=== PATIENT | female | born 1940 | race Caucasian/White ===

== ENCOUNTER 2022-10-02 11:26 | Inpatient (IN) | payer OTHER, MEDICAID ==
[~2022-10-02] VITALS: Ht 167.6 cm; Wt 95.3 kg
--- NOTE | 2022-10-02 11:30 | NUR ---
Placed in room 08 . Placed on registered nurse cardiac, blood pressure machine and pulse oximeter. To gown for exam. Side rails up. Report given to Sherie ONTIVEROS
--- NOTE | 2022-10-02 11:35 | NUR ---
Pt presents to ER with SOB, labored respirations,A&Ox4, O2 was in the 70s prior arrival , pt has Hx of COPD , skin pink and warm, cap refill <3,pt arrived on NRB and breathing Tx, O2 improving to 97%, VSS, will cont to monitor
--- NOTE | 2022-10-02 11:40 | NUR ---
Dr Molina evaluating patient at bedside
[2022-10-02 11:43] VITALS: BP_SYST 159
[2022-10-02] MEDS ORDERED: IPRATROPIUM/ALBUTEROL SULFATE 3 ML AMPUL.NEB (DUONEB) INH ONE (11:45)
--- NOTE | 2022-10-02 11:55 | NUR ---
# 20 gauge angiocath placed to RAC. Use of asceptic technique. Opsite placed over site. Blood return noted. Blood for lab drawn from site. Flushed with 10 cc of normal saline. No evidence of infiltration noted. Patient tolerated well.
--- NOTE | 2022-10-02 12:09 | NUR ---
MRSA,COVID,AND FLU SWABBED AND SENT TO LAB
[2022-10-02 12:13] LABS: BASOPHILS % (AUTO) 0.5 % (0.0-2.0); EOSINOPHILS # (AUTO) 0.2 K/uL (0.0-0.4); EOSINOPHILS % (AUTO) 2.4 % (0.0-4.0); HEMATOCRIT 34.8 % (36-48); HEMOGLOBIN 11.5 g/dL (12.0-16.0); LYMPHOCYTES # (AUTO) 1.7 K/uL (1.0-5.5); LYMPHOCYTES % (AUTO) 20.2 % (20.5-51.5); MEAN CORPUSCULAR HEMOGLOBIN 31 pg (27-31); MEAN CORPUSCULAR HGB CONC 33 % (32-36); MEAN CORPUSCULAR VOLUME 92 fL (79.0-98.0); MONOCYTES # (AUTO) 0.6 K/uL (0.0-1.0); MONOCYTES % (AUTO) 6.7 % (1.7-9.3); NEUTROPHILS # (AUTO) 5.9 K/uL (1.8-7.7); NEUTROPHILS % (AUTO) 70.2 % (40.0-70.0); PLATELET COUNT (AUTO) 195 K/uL (130-430); RED BLOOD CELL COUNT(AUTO) 3.77 MIL/uL (4.2-6.2); RED CELL DISTRIBUTION WIDTH 14.3 % (9.0-15.0); WHITE BLOOD COUNT (AUTO) 8.4 K/uL (4.8-10.8)
[2022-10-02 12:33] LABS: ANION GAP 9 (5-15); CALCIUM 9.7 mg/dL (8.4-11.0); CHLORIDE 98 mmol/L (98-107); CREATININE 1.46 mg/dL (0.55-1.30); GLUCOSE 288 mg/dL (70-99); UREA NITROGEN, BLOOD 50 mg/dL (8-21)
[2022-10-02 12:35] LABS: INR 1.1 (0.8-1.2); PROTHROMBIN TIME 11.3 SECS (9.5-12.5)
[2022-10-02 12:39] LABS: ALANINE AMINOTRANSFERASE 11 U/L (12-78); ALBUMIN 3.6 g/dL (3.4-4.8); ASPARTATE AMINOTRANSFERASE 14 U/L (10-37); LIPASE 62 U/L (73-393); TOTAL BILIRUBIN 0.6 mg/dL (0.0-1.0)
--- NOTE | 2022-10-02 12:41 | NUR ---
PT HAD MODERATE WELL FORMED BM ON BEDPAN PER REQUEST
[2022-10-02 12:48] LABS: BILIRUBIN,URINE NEGATIVE (NEGATIVE); BLOOD, URINE 1+ (NEGATIVE); CLARITY/URINE CLOUDY (CLEAR); COLOR,URINE YELLOW (YELLOW); GLUCOSE,URINE NEGATIVE (NEGATIVE); KETONES,URINE NEGATIVE (NEGATIVE); LEUKOCYTE ESTERASE ,URINE 3+ (NEGATIVE); NITRITE, URINE POSITIVE (NEGATIVE); PH,URINE 5.5 (5.0-8.0); PROTEIN URINE TRACE (NEGATIVE); UROBILINOGEN,URINE 0.2 (0.2-1.0)
[2022-10-02 12:49] LABS: BACTERIA,URINE MANY /HPF (None Seen); MUCUS,URINE 1+ /LPF (None Seen); RBC,URINE 20-50 /HPF (0-3); WBC,URINE >100 /HPF (0-3)
[2022-10-02] MEDS ORDERED: PIPERACILLIN/TAZO 3.375 GM in NS 50 ML IV ONE (13:15)
[2022-10-02] MEDS ORDERED: FUROSEMIDE 100 MG/10 ML VIAL IVP ONE (13:15)
[2022-10-02] MEDS ORDERED: VANCOMYCIN HCL 1,000 MG in NS 250 ML IV ONE (13:15)
--- NOTE | 2022-10-02 13:35 | NUR ---
Admit bed requested Patient will be admitted to care of . Admitted to TELE unit. Diagnosis ACUTE RESPIRATORY FAILURE Inpatient (Yes or No) YES Observation (Yes or No) NO Orientation concerns or request close to nursing station (Yes or No) NO Covid Status NEGATIVE On vent or bipap NO Isolation requirements NO Needs a sitter NO From Home (Yes or if No enter name of facility) [facility] Requires Dialysis (Yes or No) NO Med Rec Completed (Yes of No) YES
[2022-10-02] MEDS ORDERED: PIPERACILLIN/TAZOBACTAM 3.375 GM/VIAL (ZOSYN) IV ONE (13:38)
[2022-10-02] MEDS ORDERED: LIP40 PO (13:58)
[2022-10-02] MEDS ORDERED: DOCU250C14 PO (13:58)
[2022-10-02] MEDS ORDERED: INSU100I26 SQ (13:58)
[2022-10-02] MEDS ORDERED: PREMVAG VG (13:58)
[2022-10-02] MEDS ORDERED: ATRMDI INH (13:58)
[2022-10-02] MEDS ORDERED: ACET325T53 PO (13:58)
[2022-10-02] MEDS ORDERED: ASCO500T20 PO (13:58)
[2022-10-02] MEDS ORDERED: CLON0.2T PO (13:58)
[2022-10-02] MEDS ORDERED: TEMA15CA5 PO (13:58)
[2022-10-02] MEDS ORDERED: FURO80TA86 PO (13:58)
[2022-10-02] MEDS ORDERED: CRAN450T9 PO (13:58)
[2022-10-02] MEDS ORDERED: ACET-2634 PO (13:58)
[2022-10-02] MEDS ORDERED: INSU100V10 (13:58)
[2022-10-02] MEDS ORDERED: BISA-140 PO (13:58)
[2022-10-02] MEDS ORDERED: XALEYE OP (13:58)
[2022-10-02] MEDS ORDERED: ALPR0.25 PO ×2 (13:58)
[2022-10-02] MEDS ORDERED: METO5TAB7 PO (13:58)
[2022-10-02] MEDS ORDERED: POTA-197 PO (13:58)
[2022-10-02] MEDS ORDERED: CARV3.1246 PO (13:58)
[2022-10-02] MEDS ORDERED: INSU100V10 SUBCUT (13:58)
[2022-10-02] MEDS ORDERED: AMLO5TAB4 PO (13:58)
[2022-10-02] MEDS ORDERED: ONDA-8 TL (13:58)
[2022-10-02] MEDS ORDERED: APIX5TAB4 PO (13:58)
[2022-10-02] MEDS ORDERED: LACT1CAP72 PO (13:58)
[2022-10-02] MEDS ORDERED: VANCOMYCIN HCL 1000 MG/VIAL IV ONE (14:35)
[2022-10-02 14:53] VITALS: BP_SYST 123
[2022-10-02] MEDS: ALBUTEROL SULFATE 0.083% 2.5 MG/3 ML VIAL.NEB INH SCH ×3 (15:00→23:00)
--- NOTE | 2022-10-02 15:10 | NUR ---
Melanie hammonds in [facility] - 10/02/22 at 1510 by SDEDAFJ Perinear care completed for patient, pt's daughter at bedside
--- NOTE | 2022-10-02 15:10 | NUR ---
Perineal care completed for patient, pt's daughter at bedside
--- NOTE | 2022-10-02 16:01 | NUR ---
CONSULTATION PAGED REASON FOR CONSULTATION: ACUTE RESPIRATORY FAILURE, [facility]NA WAS CONSULT CALLED?Y PERSON WHO WAS NOTIFIED:AGNES CONSULTING PHYSICIAN:BI DURAN (OFELIA CORNEJO COLOR STRAINER) PROCESS ARTIST SPECIALTY:PULMONARY PROCESS ARTIST PHONE NUMBER:[phone] REQUESTING PHYSICIAN:SADIQ VERDUGO
--- NOTE | 2022-10-02 16:12 | NUR ---
Patient will be admitted to care of Dr Beck. Admitted to Tele unit. Will go to room 122B. Complete and up to date summary report printed. SBAR report to be given at bedside with opportunity for questions.
[2022-10-02] MEDS ORDERED: ACETAMINOPHEN 325 MG TABLET PO PRN ×3 (16:45→18:45)
[2022-10-02] MEDS ORDERED: POTASSIUM CHLORIDE 20 MEQ TAB.PRT.SR PO ONE (16:45)
[2022-10-02] MEDS: METHYLPREDNISOLONE SOD SUCC 40 MG/ML VIAL IVP SCH (17:41)
[2022-10-02] MEDS: D5NS 1,000 ML IV SCH (17:41)
[2022-10-02] MEDS: PIPERACILLIN/TAZO 3.375/DEX-IS 50 ML IV SCH (17:42)
[2022-10-02] MEDS ORDERED: cloNIDine HCL 0.2 MG TABLET PO PRN (18:00)
--- NOTE | 2022-10-02 18:45 | NUR ---
ADMITTED 82 YEARS OLD FEMALE,URDU SPEAKING,VSS,ON 3L/NC,SAT 98% C/O PAIN IN GROIN,INCONTINENT OF URINE,LOLA CARE PROVIDED,DIAPER CHANGED K LEVEL 3.0,GIVE KCL 40MEQ PO ONCE PER DR ORDER,TYLENOL 650MG PO GIVEN PRN ORDER FOR PAIN, CAME AND SEEN PT,UPDATED DR OF PT CONDITION ORDERS RECEIVED AND CARRIED OUT,CONTINUE TO MONITOR PT.
--- NOTE | 2022-10-02 19:20 | NUR ---
OPENING NOTE PT IS SEMI FOWLERS IN BED WITH EYES CLOSED. NO APPARENT SIGNS OF DISTRESS NOTED AT THIS TIME. BED IS IN LOWEST POSITION WITH SAFETY PRECAUTIONS IN PLACE. IV FLUIDS RUNNING ORDERED. CALL LIGHT WITHIN REACH.
[2022-10-02] MEDS: IPRATROPIUM BROM 0.5 MG/2.5 ML VIAL.NEB (ATROVENT) INH SCH ×2 (19:45→23:00)
[2022-10-02 20:00] VITALS: BP_SYST 149
[2022-10-02] MEDS: DOCUSATE SODIUM 250 MG CAPSULE PO SCH ×2 (21:00→22:11)
[2022-10-02] MEDS ORDERED: [UNRECOGNIZED DRUG - OTHER] SQ SCH (21:00)
[2022-10-02] MEDS ORDERED: INSULIN GLARGINE HUM REC ANLOG 30 UNIT SQ SCH (21:00)
[2022-10-02] MEDS: LATANOPROST 2.5 ML DROPS (XALATAN) OP SCH (22:12)
[2022-10-02] MEDS: amLODIPine BESYLATE 5 MG TABLET PO SCH (22:13)
[2022-10-02] MEDS: ATORVASTATIN 20 MG TABLET PO SCH (22:13)
[2022-10-02] MEDS: CARVEDILOL 3.125 MG TABLET (COREG) PO SCH (22:14)
[2022-10-02] MEDS: TEMAZEPAM 15 MG CAPSULE PO SCH (22:14)
[2022-10-02] MEDS: INSULIN GLARGINE 100 UNITS/ML, 10 ML VIAL SUBCUT SCH (22:22)
[2022-10-02] MEDS: INSULIN REGULAR, HUMAN 100 UNITS/ML, 3 ML VIAL (humuLIN R) SUBCUT PRN (22:23)
--- NOTE | 2022-10-02 23:05 | NUR ---
ROUNDS PT LYING IN BED WITH EYES CLOSED. NO APPARENT DISTRESS. IV FLUIDS RUNNING ORDERED. CALL LIGHT WITHIN REACH.
[2022-10-03 00:24] VITALS: BP_SYST 124
[2022-10-03] MEDS: METHYLPREDNISOLONE SOD SUCC 40 MG/ML VIAL IVP SCH ×4 (00:44→17:28)
[2022-10-03] MEDS: PIPERACILLIN/TAZO 3.375/DEX-IS 50 ML IV SCH ×4 (00:44→17:29)
--- NOTE | 2022-10-03 01:50 | NUR ---
ROUNDS PT LYING IN BED WITH EYES CLOSED. NO APPARENT DISTRESS. IV FLUIDS RUNNING ORDERED. CALL LIGHT WITHIN REACH.
[2022-10-03] MEDS: IPRATROPIUM BROM 0.5 MG/2.5 ML VIAL.NEB (ATROVENT) INH SCH ×6 (03:25→23:59)
[2022-10-03] MEDS: ALBUTEROL SULFATE 0.083% 2.5 MG/3 ML VIAL.NEB INH SCH ×6 (03:25→23:59)
--- NOTE | 2022-10-03 04:15 | NUR ---
ROUNDS PT LYING IN BED WITH EYES CLOSED. NO APPARENT DISTRESS. IV FLUIDS RUNNING ORDERED. CALL LIGHT WITHIN REACH.
[2022-10-03] MEDS: INSULIN REGULAR, HUMAN 100 UNITS/ML, 3 ML VIAL (humuLIN R) SUBCUT PRN ×4 (06:07→20:51)
[2022-10-03 06:31] LABS: BASOPHILS % (AUTO) 0.4 % (0.0-2.0); HEMATOCRIT 30.9 % (36-48); HEMOGLOBIN 10.7 g/dL (12.0-16.0); LYMPHOCYTES # (AUTO) 0.5 K/uL (1.0-5.5); LYMPHOCYTES % (AUTO) 7.9 % (20.5-51.5); MEAN CORPUSCULAR HEMOGLOBIN 32 pg (27-31); MEAN CORPUSCULAR HGB CONC 34 % (32-36); MEAN CORPUSCULAR VOLUME 92 fL (79.0-98.0); MONOCYTES # (AUTO) 0.1 K/uL (0.0-1.0); MONOCYTES % (AUTO) 1.4 % (1.7-9.3); NEUTROPHILS # (AUTO) 5.4 K/uL (1.8-7.7); NEUTROPHILS % (AUTO) 90.3 % (40.0-70.0); PLATELET COUNT (AUTO) 160 K/uL (130-430); RED BLOOD CELL COUNT(AUTO) 3.35 MIL/uL (4.2-6.2)
[2022-10-03 07:15] LABS: ALANINE AMINOTRANSFERASE 13 U/L (12-78); ANION GAP 12 (5-15); ASPARTATE AMINOTRANSFERASE 14 U/L (10-37); CHLORIDE 99 mmol/L (98-107); CREATININE 2.01 mg/dL (0.55-1.30); TOTAL BILIRUBIN 0.6 mg/dL (0.0-1.0); UREA NITROGEN, BLOOD 58 mg/dL (8-21); VANCOMYCIN,RANDOM 12.3 ug/mL
[2022-10-03 07:38] LABS: GLUCOSE 417 mg/dL (70-99)
[2022-10-03 08:00] VITALS: BP_SYST 125
--- NOTE | 2022-10-03 08:05 | NUR ---
Initial notes Received patient awake in bed, respiration even and unlabored, no signs of distress, no c/o pain/SOB, oxygen saturation 96% on 3L nasal canula. IV infusing right AC patent. All safety precaution secured, bed in low position, call light w/in reached
[2022-10-03] MEDS: POTASSIUM CHLORIDE 20 MEQ TAB.PRT.SR PO SCH (08:09)
[2022-10-03] MEDS: ASCORBIC ACID 500 MG TABLET PO SCH (08:09)
[2022-10-03] MEDS: amLODIPine BESYLATE 5 MG TABLET PO SCH ×2 (08:10→20:48)
[2022-10-03] MEDS: LACTOBACILLUS RHAMNOSUS GG 1 CAP CAPSULE PO SCH (08:10)
[2022-10-03] MEDS: metOLazone 5 MG TABLET PO SCH (08:14)
[2022-10-03] MEDS: BISACODYL 5 MG TABLET.DR (DULCOLAX) PO SCH (08:14)
[2022-10-03] MEDS: DOCUSATE SODIUM 250 MG CAPSULE PO SCH ×2 (08:15→20:47)
[2022-10-03] MEDS: CARVEDILOL 3.125 MG TABLET (COREG) PO SCH ×2 (08:15→20:47)
[2022-10-03] MEDS: APIXABAN 2.5 MG TABLET PO SCH (08:16)
[2022-10-03] MEDS ORDERED: NON-FORMULARY MEDICATION (Apixaban (Eliquis) 5 MG) PO SCH (09:00)
[2022-10-03] MEDS ORDERED: NON-FORMULARY MEDICATION (Cranberry Fruit (Cranberry) 1 TAB) PO SCH (09:00)
[2022-10-03] MEDS ORDERED: LACTOBACILLUS RHAMNOSUS GG PO SCH (09:00)
[2022-10-03] MEDS: D5NS 1,000 ML IV SCH (09:30)
[2022-10-03] MEDS ORDERED: INSULIN REGULAR, HUMAN 100 UNITS/ML, 3 ML VIAL SUBCUT ONE ×2 (12:30→21:15)
[2022-10-03 13:05] VITALS: BP_SYST 133
[2022-10-03] MEDS ORDERED: VANCOMYCIN HCL 1,000 MG in NS 250 ML IV SCH (15:00)
[2022-10-03 16:39] VITALS: BP_SYST 137
--- NOTE | 2022-10-03 18:24 | NUR ---
Page Dr. Vazquez, patient blood glucose testing 446mg/dl, states I will come in and make adjustment"
--- NOTE | 2022-10-03 19:01 | NUR ---
Closing notes Received patient awake in bed, respiration even and unlabored, no signs of distress. On 3L nasal canula saturation at 98% IV infusing right AC patent. No signs of hypo/hyperglycemia. Glucose check at 1700 446mg/dl Dr. jalloh notified. All safety precaution secured, bed in low position, call light w/in reached
--- NOTE | 2022-10-03 19:15 | NUR ---
OPENING NOTE PT IS SEMI FOWLERS IN BED WITH EYES OPEN. NO APPARENT SIGNS OF DISTRESS NOTED AT THIS TIME. BED IS IN LOWEST POSITION WITH SAFETY PRECAUTIONS IN PLACE. IV FLUIDS RUNNING ORDERED. CALL LIGHT WITHIN REACH. VSS.
[2022-10-03] MEDS: ATORVASTATIN 20 MG TABLET PO SCH (20:46)
[2022-10-03] MEDS: LATANOPROST 2.5 ML DROPS (XALATAN) OP SCH (20:47)
[2022-10-03] MEDS: TEMAZEPAM 15 MG CAPSULE PO SCH (20:47)
[2022-10-03] MEDS: INSULIN GLARGINE 100 UNITS/ML, 10 ML VIAL SUBCUT SCH (20:50)
--- NOTE | 2022-10-03 20:58 | NUR ---
SUKHDEV ISAAC CRITICAL BLOOD SUGAR OF 509.DR PONCHO SANTIZO,AWAITING CALL BACK. Addendum: 10/04/22 at 0330 by Lokesh Leggett LVN RECEIVED JACLYN BACK FROM DR ISAAC AT 2100. ORDERED AN ADDITIONAL 3 UNITS REGULAR INSULIN TO BE GIVEN
[2022-10-03] MEDS: 0.45% NACL 1,000 ML IV SCH (21:03)
[2022-10-04] MEDS: PIPERACILLIN/TAZO 3.375/DEX-IS 50 ML IV SCH ×4 (00:07→17:49)
[2022-10-04] MEDS: METHYLPREDNISOLONE SOD SUCC 40 MG/ML VIAL IVP SCH ×3 (00:07→12:00)
[2022-10-04 01:45] VITALS: BP_SYST 145
[2022-10-04] MEDS: ALBUTEROL SULFATE 0.083% 2.5 MG/3 ML VIAL.NEB INH SCH ×6 (03:00→23:00)
[2022-10-04] MEDS: IPRATROPIUM BROM 0.5 MG/2.5 ML VIAL.NEB (ATROVENT) INH SCH ×6 (03:00→23:00)
[2022-10-04] MEDS ORDERED: INSULIN REGULAR, HUMAN 100 UNITS/ML, 3 ML VIAL SUBCUT ONE ×4 (06:00→15:45)
--- NOTE | 2022-10-04 06:00 | NUR ---
CRITICAL VALUE PT BLOOD SUGAR 403. PAGED DR ISAAC. DR RETURNED CALL RIGHT AWAY. DR ORDERED FOR AN ADDITIONAL 3 UNITS REGULAR INULIN TO BE GIVEN.
[2022-10-04] MEDS: INSULIN REGULAR, HUMAN 100 UNITS/ML, 3 ML VIAL (humuLIN R) SUBCUT PRN ×4 (06:01→21:29)
[2022-10-04] MEDS: amLODIPine BESYLATE 5 MG TABLET PO SCH ×2 (08:47→20:09)
[2022-10-04] MEDS: ASCORBIC ACID 500 MG TABLET PO SCH (08:47)
[2022-10-04] MEDS: metOLazone 5 MG TABLET PO SCH (08:47)
[2022-10-04] MEDS: LACTOBACILLUS RHAMNOSUS GG 1 CAP CAPSULE PO SCH (08:48)
[2022-10-04] MEDS: CARVEDILOL 3.125 MG TABLET (COREG) PO SCH ×2 (08:48→20:09)
[2022-10-04] MEDS: POTASSIUM CHLORIDE 20 MEQ TAB.PRT.SR PO SCH (08:48)
[2022-10-04] MEDS: APIXABAN 2.5 MG TABLET PO SCH (08:51)
[2022-10-04] MEDS: DOCUSATE SODIUM 250 MG CAPSULE PO SCH ×2 (08:56→20:08)
[2022-10-04] MEDS: BISACODYL 5 MG TABLET.DR (DULCOLAX) PO SCH (08:56)
[2022-10-04] MEDS ORDERED: CONJUGATED ESTROGENS VAGINAL CREAM 42.5 GM .APPL VG SCH (09:00)
[2022-10-04 12:00] VITALS: BP_SYST 135
--- NOTE | 2022-10-04 13:30 | NUR ---
GIVE TOTAL OF 15U REGULAR INSULIN IF BS [address] ISAAC.
--- NOTE | 2022-10-04 13:53 | NUR ---
+MRSA NARES AND UA ECOLI/ESBL: SPOKE WITH DR ISAAC AND MADE AWARE. PER , HE WILL PUT HER ON VANCO.
[2022-10-04 15:49] VITALS: BP_SYST 148
--- NOTE | 2022-10-04 18:52 | NUR ---
SHIFT NOTES 07A-7P: 0730AM: PATIENT IS RESTING IN BED QUIETLY. AAOX4, ABLE TO MAKE NEEDS KNOWN. NO ADDITIONAL DISTRESS NOTED. EXPLAINED POC AND PATIENT VERBALIZED UNDERSTANDING. BED IN LOW AND LOCK POSITION. BED ALARM ON. CALL LIGHT AND BEDSIDE TABLE WITHIN REACH. STABLE CONDITION AT THIS TIME. 1145A: GAVE EXTRA 3U OF REGULAR PER DR ISAAC ORDER DUE TO BS 498. 1315: GAVE EXTRA 15U OF REGULAR PER DR ISAAC ORDER DUE TO BS 518. 1545: GAVE EXTRA 15U OF REGULAR PER DR ISAAC ORDER DUE TO BS 488. 1757: GAVE 12U OF REGULAR INSULIN PER SS. BS 404. 1845: PATIENT IS RESTING IN BED TRYING TO FINISH HER DINNER. NO ADDITIONAL DISTRESS NOTED. HOURLY ROUND MADE THROUGHOUT THE SHIFT. ALL NEEDS MET. STABLE CONDITION AT THIS TIME.
[2022-10-04 20:00] VITALS: BP_SYST 149
[2022-10-04] MEDS: predniSONE 20 MG TABLET PO SCH (20:08)
[2022-10-04] MEDS: ATORVASTATIN 20 MG TABLET PO SCH (20:08)
[2022-10-04] MEDS: TEMAZEPAM 15 MG CAPSULE PO SCH (20:08)
[2022-10-04] MEDS: LATANOPROST 2.5 ML DROPS (XALATAN) OP SCH (21:00)
[2022-10-04] MEDS: MUPIROCIN 1 GM OIN.PF.APP NS SCH (21:00)
[2022-10-04] MEDS: INSULIN GLARGINE 100 UNITS/ML, 10 ML VIAL SUBCUT SCH (21:30)
[2022-10-04] MEDS: 0.45% NACL 1,000 ML IV SCH (21:36)
--- NOTE | 2022-10-04 23:22 | NUR ---
Patient in bed. Turned repositioned q2. No acute distress noted. C/O a headache prn given. Will continue to monitor.
[2022-10-05] MEDS: PIPERACILLIN/TAZO 3.375/DEX-IS 50 ML IV SCH ×3 (00:19→12:10)
[2022-10-05] MEDS: ALBUTEROL SULFATE 0.083% 2.5 MG/3 ML VIAL.NEB INH SCH ×3 (03:00→11:31)
[2022-10-05] MEDS: IPRATROPIUM BROM 0.5 MG/2.5 ML VIAL.NEB (ATROVENT) INH SCH ×3 (03:00→11:32)
[2022-10-05 04:00] VITALS: BP_SYST 139
--- NOTE | 2022-10-05 07:15 | NUR ---
opening note received SBAR from night RN. Patient in bed, respirations even, non labored, bed in low and locked position call light within reach. bed alarm on.
[2022-10-05] MEDS: INSULIN REGULAR, HUMAN 100 UNITS/ML, 3 ML VIAL (humuLIN R) SUBCUT PRN ×2 (07:22→12:14)
[2022-10-05 08:00] VITALS: BP_SYST 160
--- NOTE | 2022-10-05 08:13 | NUR ---
Dietitian Recommendations * Consider downgrading to Finely Chopped (Minced & Moist) Diet, CCHO * If/when compliant, add preferences to meals like fish with lemon juice, jello, puddings, and soft fruits (no applesauce). Submitted for SHAYY Keith by Teri Watkins, MPH, RD Please refer to RD Assessment for further details. Thanks! Addendum: 10/05/22 at [address] Amended: Links added.
[2022-10-05 08:48] VITALS: BP_SYST 139
[2022-10-05] MEDS: DOCUSATE SODIUM 250 MG CAPSULE PO SCH ×2 (09:00→09:07)
[2022-10-05] MEDS: amLODIPine BESYLATE 5 MG TABLET PO SCH (09:07)
[2022-10-05] MEDS: POTASSIUM CHLORIDE 20 MEQ TAB.PRT.SR PO SCH (09:08)
[2022-10-05] MEDS: metOLazone 5 MG TABLET PO SCH (09:08)
[2022-10-05] MEDS: LACTOBACILLUS RHAMNOSUS GG 1 CAP CAPSULE PO SCH (09:09)
[2022-10-05] MEDS: BISACODYL 5 MG TABLET.DR (DULCOLAX) PO SCH (09:09)
[2022-10-05] MEDS: predniSONE 20 MG TABLET PO SCH (09:09)
[2022-10-05] MEDS: CARVEDILOL 3.125 MG TABLET (COREG) PO SCH (09:09)
[2022-10-05] MEDS: ASCORBIC ACID 500 MG TABLET PO SCH (09:10)
[2022-10-05] MEDS: MUPIROCIN 1 GM OIN.PF.APP NS SCH (09:11)
[2022-10-05] MEDS: APIXABAN 2.5 MG TABLET PO SCH (09:12)
--- NOTE | 2022-10-05 11:17 | NUR ---
md Dr Vazquez bedside examining patient
[2022-10-05 11:50] VITALS: BP_SYST 143
[2022-10-05 13:29] VITALS: BP_SYST 143
--- NOTE | 2022-10-05 13:37 | NUR ---
FAMILY INFORMED IDRIS ORANTES THAT PATIENT IS RETURNING TO [facility]
--- NOTE | 2022-10-05 13:39 | NUR ---
REPORT PROVIDED REPORT TO RIGOBERTO AT [facility]
--- NOTE | 2022-10-05 14:05 | NUR ---
PT TRANSFERRED Report given to AYA at [facility]. Transfer packet with Transfer Orders and Medication Reconciliation form given to EMT with report. Exitcare provided. [facility] ID band removed, replaced with ID band with pt's name and . IV catheter removed, intact and dressing applied, no active bleeding. All belongings sent with patient. Patient left floor via gurney escorted by EMT in no distress.
[2022-10-05] MEDS ORDERED: IPRATROPIUM BROM 0.5 MG/2.5 ML VIAL.NEB (ATROVENT) INH ONE (15:17)
[2022-10-05] MEDS ORDERED: ALBUTEROL SULFATE 0.083% 2.5 MG/3 ML VIAL.NEB INH ONE (15:17)
== END 2022-10-05 14:05 | DRG 871 ==
LOC: SED 11:26 → STU 13:26
PROVIDERS: ADMIT Family Medicine; ATTEND Family Medicine
DX: A41.9 Sepsis, unspecified organism (principal); J18.9 Pneumonia, unspecified organism; J96.01 Acute respiratory failure with hypoxia; I69.351 Hemiplegia and hemiparesis following cerebral infarction affecting right dominant side; N39.0 Urinary tract infection, site not specified; I13.0 Hypertensive heart and chronic kidney disease with heart failure and stage 1 through stage 4 chronic kidney disease, or unspecified chronic kidney disease; N17.9 Acute kidney failure, unspecified; I50.9 Heart failure, unspecified; N18.30 Chronic kidney disease, stage 3 unspecified; E11.22 Type 2 diabetes mellitus with diabetic chronic kidney disease; Z20.822 Contact with and (suspected) exposure to COVID-19; Z88.5 Allergy status to narcotic agent; Z79.899 Other long term (current) drug therapy
CPT/HCPCS: 36415; 71045; 80053; 80202; 81000; 82803-TC; 83605; 83690; 83880; 84484; 85025; 85610-TC; 85730-TC; 87040; 87081; 87086; 93005; 93306; 94640; 94760; 96365; 96367; 96375; 99291; G0378; J1030; J1815; J1940; J2543; J3370; J7050; J7512; J7613